=== PATIENT | female | born 2000 | race Caucasian/White ===

== ENCOUNTER 2022-05-27 21:06 | Observation (INO) | payer MEDICAID ==
[~2022-05-27] VITALS: Ht 160 cm; Wt 79.4 kg
== END 2022-05-27 23:40 | disposition home or self-care (01) ==
LOC: MLD 21:06
PROVIDERS: ADMIT Obstetrics & Gynecology; ATTEND Obstetrics & Gynecology
DX: O26.893 Other specified pregnancy related conditions, third trimester (principal); R10.9 Unspecified abdominal pain; Z3A.37 37 weeks gestation of pregnancy
CPT/HCPCS: 59025; 76815; 81000; G0378; Q0092